=== PATIENT | male | born 1985 | race Caucasian/White ===

== ENCOUNTER 2018-07-10 13:39 | Emergency (ER) | payer MEDICAID ==
[~2018-07-10 13:39] MED LIST: OMEP10CA4; OMEP20CA9
--- NOTE | 2018-07-10 14:02 | NUR ---
NAX1
--- NOTE | 2018-07-10 14:05 | NUR ---
NIL X2
--- NOTE | 2018-07-10 14:54 | NUR ---
LATE ENTRY FOR 1420. NA X3
== END 2018-07-10 14:55 | disposition left against medical advice (07) ==
LOC: ED 14:39
DX: Z53.21 Procedure and treatment not carried out due to patient leaving prior to being seen by health care provider (principal)

== ENCOUNTER 2018-07-10 20:33 | Emergency (ER) | payer MEDICAID ==
[2018-07-10 20:56] VITALS: BP 127/75
== END 2018-07-10 23:16 | disposition home or self-care (01) ==
LOC: ED 23:10
DX: S43.402A Unspecified sprain of left shoulder joint, initial encounter (principal); S63.502A Unspecified sprain of left wrist, initial encounter; V11.4XXA Pedal cycle driver injured in collision with other pedal cycle in traffic accident, initial encounter; Y93.89 Activity, other specified; Y92.89 Other specified places as the place of occurrence of the external cause; Y99.8 Other external cause status
CPT/HCPCS: 99283

== ENCOUNTER 2020-09-30 15:39 | Emergency (ER) | payer MEDICAID ==
[~2020-09-30] VITALS: Ht 167.6 cm; Wt 57.1 kg
[~2020-09-30 15:39] MED LIST changes: -OMEP10CA4; +OMEP10CA5
[2020-09-30 15:45] VITALS: BP 145/85
[2020-09-30 16:28] LABS: BASOPHILS % (AUTO) 1 % (0-1); EOSINOPHILS % (AUTO) 2 % (1-7); LYMPHOCYTES % (AUTO) 24 % (22-44); MEAN CORPUSCULAR HEMOGLOBIN 30.3 pg (27.5-34.5); MEAN CORPUSCULAR HGB CONC 33.8 g/dL (33.2-36.2); MEAN PLATELET VOLUME 7.3 fL (7.4-10.4); MONOCYTES % (AUTO) 7 % (2-9); NEUTROPHILS % (AUTO) 66 % (42-75); PLATELET COUNT 237 x10^3/uL (130-400); RED BLOOD COUNT 5.47 x10^6/uL (4.38-5.82); RED CELL DISTRIBUTION WIDTH 13.2 % (9.4-14.8)
[2020-09-30] MEDS ORDERED: LORazepam 1MG TABLET PO ONE (16:30)
[2020-09-30 16:32] LABS: ALBUMIN 4.2 g/dL (3.4-5.0); ANION GAP 4 mmol/L (5-15); CALCIUM 9.1 mg/dL (8.5-10.1); CHLORIDE 105 mmol/L (98-107); CREATININE 0.99 mg/dL (0.7-1.3)
[2020-09-30] MEDS ORDERED: LORazepam 1MG TABLET ONE (16:32)
--- NOTE | 2020-09-30 16:35 | NUR ---
MEDICATED FOR ANXIETY. PT STATES HE WAS HAVING ANXIETY AT WORK W BODY ACHES.
--- NOTE | 2020-09-30 17:43 | NUR ---
Patient given discharge instructions and they have confirmed that they understand the instructions. Patient ambulatory with steady gait.
== END 2020-09-30 17:59 | disposition home or self-care (01) ==
LOC: ED 16:20
DX: F41.1 Generalized anxiety disorder (principal); R06.4 Hyperventilation; R94.31 Abnormal electrocardiogram [ECG] [EKG]; F17.200 Nicotine dependence, unspecified, uncomplicated; Z91.14 Patient's other noncompliance with medication regimen
CPT/HCPCS: 36415; 80048; 82040; 84443; 85025; 93005; 99284